=== PATIENT | female | born 1945 | race Caucasian/White ===

== ENCOUNTER → 2018-02-25 | Outpatient (CLI) | payer MEDICARE ==
[~2018-02-25] MED LIST: ACET-2146 PO; ADV500/50 INH; ALB0.5 INH; ALBU8.5H IH; BEN10 PO; BENA40TA53 PO; CIP500 PO; CLOB15OI16 TP; ESOM20CA31 PO; FLUT1DIS29 IH; HYDR-2966 PO; HYDR12.561 PO; IBUP-136 PO; LEVO-85 PO; LOR5/325 PO; METR500T54 PO; OMEP-218 PO; OND4 PO; ONDA4TAB PO; OXYGENHOME INH; PRE10 PO; TIO18R INH
[2018-02-25 10:19] LABS: PLATELET COUNT, AUTOMATED 283 K/uL (150-450)
[2018-02-25 11:07] LABS: LDL CHOLESTEROL 134 mg/dl
--- NOTE | 2018-02-25 13:56 | RADIOLOGY IMAGING REPORT ---
FACILITY: [facility] PATIENT NAME: Enedelia Childs : 1945 MR: [id number] V: [id number] EXAM DATE: ORDERING PHYSICIAN: BRANT DELATORRE TECHNOLOGIST: Location: [facility] Patient: Enedelia Childs : 1945 Visit/Account:[id number] Date of Sevice: 02/25/2018 DEXA Scan HISTORY: Postmenopausal. COMPARISON: None. LUMBAR SPINE: The bone mineral density (BMD) measured from L1-L4 correlates with a Z-score of -0.3 and a T-score of -2.0 which is compatible with osteopenia as defined by the World Health Organization. The correspon ding risk of fracture in the lumbar spine is increased 4 times compared with a young adult reference population. HIP: Bone mineral density (BMD) measured in the left total hip region correlates with a Z-score of -1.0 an d a T-score of -2.5 which is compatible with osteoporosis as defined by the World Health Organization . The corresponding risk of fracture in the hip is increased 6 times compared with a young adult ref erence population. Bone mineral density (BMD) measured in the left Femoral Neck region measures 0.706 g/cm2. IMPRESSION: 1. Lumbar spine: Compatible with osteopenia. 2. Left Total Hip: Compatible with osteoporosis. 3. Left Femoral Neck: Bone Mineral Density is 0.706 g/cm2 The next DEXA scan of this patient should include the following sites: L1-L4 and left hip. FRAX? WHO Fracture Risk Assessment Tool link: <http://www.shef.ac.uk/FRAX/tool.jsp?locationValue=9> PLEASE NOTE: 1) The World Health Organization defines low BMD as follows: T-score Normal > -1 Osteopenia < -1 and > -2.5 Osteoporosis < -2.5 without fractures Established osteoporosis < -2.5 with fractures 2) In general, you may wish to consider: Diagnosis Treatment Follow-up DEXA Normal BMD Prevention 2-3 years Osteopenia Prevention/therapy 1-2 years Osteoporosis Therapy Yearly 3) Fracture risk estimated from the T-score is more accurate for vertebral fractures (often spontane ous) than for hip fractures. Report Dictated By: Amber Barba MD at 02/25/2018 1:50 PM Report E-Signed By: Amber Barba MD at 02/25/2018 1:51 PM WSN:[id number]
== END ==
LOC: RAD 01:28
PROVIDERS: ATTEND Family Medicine
DX: I10 Essential (primary) hypertension (principal)
CPT/HCPCS: 36415; 77080; 82040; 82247; 82310; 82374; 82435; 82465; 82565; 82947; 83718; 84075; 84132; 84155; 84295; 84450; 84460; 84478; 84520; 85025